=== PATIENT | female | born 1930 | race Caucasian/White ===

== ENCOUNTER 2016-04-08 20:42 | Outpatient (CLI) | payer MEDICARE, OTHER ==
[2016-04-08 21:07] LABS: #Basophils 0.1 thou/uL (0.0-0.2); #Eosinphils 0.2 thou/uL (0.0-0.7); #Lymphocytes 1.5 thou/uL (1.20-3.40); #Monocytes 0.9 thou/uL (0.11-0.59); #Neutrophils 4.7 thou/uL (1.40-6.50); %Basophils 0.7 % (0.0-1.0); %Eosinophils 2.2 % (0.0-10.0); %Lymphocytes 20.4 % (21.0-51.0); %Monocytes 12.5 % (0.0-10.0); Hematocrit 32.6 % (36.0-47.0); Red Blood Cell (RBC) Count 3.25 mill/uL (4.20-5.40); White Blood Cell (WBC) Count 7.3 thou/uL (4.8-10.8)
[2016-04-08 21:16] LABS: Prothrombin Time 14.2 SEC (12.0-14.7)
[2016-04-08 21:58] LABS: Anion Gap 12 mmol/L (10-20); BUN (Urea Nitrogen) 22 mg/dL (9.8-20.1); Calc. Creatinine Clearance 0 mL/min (70-130); Calcium 8.4 mg/dL (7.8-10.44); Carbon Dioxide 26 mmol/L (23-31); Chloride 104 mmol/L (98-107); Estimated GFR-MDRD 80
== END 2016-04-08 20:43 | disposition home or self-care (01) ==
LOC: NAV LAB 20:42
PROVIDERS: ATTEND Family Medicine
DX: M79.81 Nontraumatic hematoma of soft tissue (principal); Z79.899 Other long term (current) drug therapy
CPT/HCPCS: 80048; 85025; 85610; 85730

== ENCOUNTER 2016-04-15 16:25 | Emergency (ER) | payer MEDICARE, OTHER ==
[2016-04-15] MEDS ORDERED: Lidocaine 1% w/Epinephrine 1:100K 20 ML VIAL ONE (17:07)
[2016-04-15] MEDS ORDERED: Bacitracin Zinc 1 Packet ONE (17:23)
--- NOTE | 2016-04-15 18:07 | PICIS ---
[facility] EMERGENCY RECORD ADMIN MERGE: Call In [facility] Apr 15, 2016 16:10. (16:38 BDON) Ambulance Sat Apr 15, 2016 16:23. (16:38 BDON) TRIAGE ([facility] Apr 15, 2016 16:35 BDON) TRIAGE NOTES: Fell from standing positing, went forward, laceration to left eyebrow. No other complaints. Right hip surgery a month ago. DNR on chart. ([facility] Apr 15, 2016 16:35 BDON) PATIENT: NAME: Emily Lebron, AGE: 86, GENDER: female, : kierra 1930, TIME OF GREET: Sat Apr 15, 2016 16:26, PREFERRED LANGUAGE: Sammarinese, ETHNICITY: Not or , ECODE BILLING MAP: [facility], SSN: [id number], Zip Code: [address], KG WEIGHT: 49.90, PHONE: , , , PERSON ID: [id number], PCP: Gurjit KHOURY C. HENRY. ([facility] Apr 15, 2016 16:35 BDON) COMPLAINT: FALL/LT EYE LAC. ([facility] Apr 15, 2016 16:35 BDON) ADMISSION: URGENCY: 3 Urgent, ADMISSION SOURCE: Residential Care Facility, TRANSPORT: AMBULANCE - [facility], BED: TRIAGE. ([facility] Apr 15, 2016 16:35 BDON) ASSESSMENT: Assessment: Fell forward from a standing position, laceration left eye brow, bleeding controlled. (16:48 BDON) LMP: LMP: Menopause. (16:48 BDON) TREATMENTS IN PROGRESS: Treatments given Prehospital: dressing to forehead. (16:48 BDON) PROVIDERS: TRIAGE NURSE: Shaylee Mendez RN. ([facility] Apr 15, 2016 16:35 BDON) VITAL SIGNS: BP 163/73, Pulse 84, Resp 17, Temp 98.4, (Oral), Pain 3, O2 Sat 97, Time 04/15/2016 16:31. (16:31 BDON) KNOWN ALLERGIES No Known Drug Allergies (Unconfirmed) CURRENT MEDICATIONS Tylenol: TABLET : Strength - 325 mg : ORAL Patient Dose: 2 tab(s) every 6 hours PRN. (16:50 BDON) traMADol: TABLET : Strength - 50 mg : ORAL Patient Dose: every 4 to 6 hours.as needed. (16:51 BDON) lisinopril: TABLET : Strength - 10 mg : ORAL Patient Dose: once a day (in the morning). (16:51 BDON) Plavix: TABLET : Strength - 75 mg : ORAL Patient Dose: once a day. (16:51 BDON) Exelon: PATCH, TRANSDERMAL 24 HOURS : Strength - 4.6 mg/24 hour : TRANSDERMAL Patient Dose: Unknown. (16:53 BDON) citalopram: &a-1R&a+25V*p+0X*v1038W*c202B*c15G*c2P*p-0X&a-25V&a+1R Name: Emily Lebron : 1930 F86 MedRec: [id number] AcctNum: [id number] Prepared: Sat Apr 15, 2016 19:24 by Interface Page 1 of 6 pMD [facility] EMERGENCY RECORD TABLET : Strength - 20 mg : ORAL Patient Dose: once a day. (16:53 BDON) potassium chloride: CAPSULE, EXTENDED RELEASE : Strength - 10 mEq : ORAL Patient Dose: Unknown. (16:54 BDON) SEROquel: TABLET : Strength - 50 mg : ORAL Patient Dose: once a day. (16:54 BDON) Nuedexta: CAPSULE : Strength - 20 mg-10 mg : ORAL Patient Dose: 2 times a day. (16:55 BDON) melatonin: CAPSULE : Strength - 10 mg : ORAL Patient Dose: once a day (at bedtime). (16:55 BDON) VITAL SIGNS VITAL SIGNS: BP: 163/73, Pulse: 84, Resp: 17, Temp: 98.4 (Oral), Pain: 3, O2 sat: 97, Time: 04/15/2016 16:31. (16:31 BDON) BP: 166/86, Pulse: 89, Resp: 18, O2 sat: 96 on Room Air, Time: 04/15/2016 17:00. (17:00 EPIE) BP: 182/88, Pulse: 91, O2 sat: 98, Time: 04/15/2016 17:30. (17:30 BDON) BP: 159/81, Pulse: 94, Pain: 0, Time: 04/15/2016 18:38. (18:38 BDON) BP: 150/90, Pulse: 91, Resp: 16, Pain: 0, O2 sat: 98 on RA, Time: 04/15/2016 18:50. (18:50 LHAL) NURSING ASSESSMENT: HEAD-TO-TOE (16:56 BDON) CONSTITUTIONAL: Patient arrives, via [facility], History obtained from, [facility], Patient appears comfortable, Patient cooperative, Patient alert, Patient is, confused, Skin warm, Skin dry, Skin normal in color. SKIN: Skin assessment findings include skin warm, Skin dry, Skin normal in color, Inspection findings include laceration, to left eye brow...temporal area, bleeding controlled. NEURO: Able to close eyes, Face symmetrical. RESPIRATORY/CHEST: Respiratory assessment findings include respiratory effort easy, Respirations regular. RIGHT LOWER EXTREMITY: Notes: right hip surgery a month ago, no complaint of pain. SAFETY: Cart/Stretcher in lowest position, Family at bedside, Hospital ID band on, Patient in view of the nursing station. NURSING PROCEDURE: COMMUNICATIONS COMMUNICATIONS: prison, contacted at [phone], Name of contact Jolene GUPTA @ [facility], Contacted to call report for transfer back to facility, Awaiting EMS. (17:46 EPIE) prison, Spoke with [facility] staff as to ETA, it is unknown at this time. (18:33 BDON) NURSING PROCEDURE: DISCHARGE NOTE DISCHARGE: Patient discharged to jail, [facility], &a-1R&a+25V*p+0X*j0967I*c202B*c15G*c2P*p-0X&a-25V&a+1R Name: Emily Lebron Randy : 1930 F86 MedRec: [id number] AcctNum: [id number] Prepared: Sat Apr 15, 2016 19:24 by Interface Page 2 of 6 pMD [facility] EMERGENCY RECORD transported via non-urgent ambulance, Summary of Care printed/ provided, Patient requested and was provided an electronic copy of Discharge Instructions, Transition record given to patient, Discharge instructions given to daughter in law, Simple or moderate discharge teaching performed, Notes: Paper work will be sent with EMS, report called to [facility] by Iliana PEDRAZA Waiting on EMS. (17:56 BDON) Patient discharged to jail, [facility], Copy of chart sent to jail with patient, on a stretcher, transported via non-urgent ambulance, accompanied by emergency medical services personnel, Summary of Care printed/ provided, Patient requested and was provided an electronic copy of Discharge Instructions, Transition record given to patient, Discharge instructions given to patient, Discharge instructions given to FAMILY /EMS AND NH, Simple or moderate discharge teaching performed, by Britney SEGAL RN, Medication reconciliation form given, and reviewed with EMS/FAMILY, Above person(s) verbalized understanding of discharge instructions and follow-up care, Notes: DC HOME TO [place] WITHOUT INCIDENT, SKIN PINK W/D, NORMAL EVEN RESP, AWAKE, ALERT, CONFUSED, NORMAL MENTATION FOR PT, STABLE. (19:11 LHAL) BELONGINGS: Belongings and valuables with patient upon arrival to the Emergency Department include:. (19:11 LHAL) NURSING PROCEDURE: NURSE NOTES NURSES NOTES: Notes: Attempted to call [facility]. No answer. Will attempt again. (17:30 EPIE) Notes: Family at bedside, waiting on EMS. (18:24 BDON) Notes: received report on pt from Shaylee Mendez RN. Pt resting quietly, family at bs, pt awake, alert, confused, PERRL, bandaid to left temporal area with bruising, no swelling. Waiting on EMS to transport pt back to [place]>. (18:50 LHAL) Notes: [facility] HERE, REPORT GIVEN. (19:11 LHAL) VITAL SIGNS: BP: 150, / 90, Pulse: 91, Resp: 16, Pain: 0, O2 sat: 98, on: RA. (18:50 LHAL) NURSING PROCEDURE: WOUND CARE PATIENT IDENTIFIER: Patient actively involved in identification process. (17:23 BDON) TIMEOUT: Prior to procedure, correct patient verified by, Correct procedure verified, Correct site verified, Correct equipment utilized, Timeout not performed due to emergent nature of procedure. (17:23 BDON) WOUND CARE: Wound care indicated for preparing wound for repair, Wound site: left eye brown, Cause of wound: fall, Local infiltration with, 1% lidocaine with epinephrine, Wound irrigated with normal saline, by Dr. Eli, Wound cleansed with Betadine, Wound repaired with sutures, using 1 pack of suture. (17:23 BDON) FOLLOW-UP: After procedure, simple dressing applied, Notes: bandaide and bact ointment to site Blood cleaned out of hair. (17:39 BDON) &a-1R&a+25V*p+0X*j4796X*c202B*c15G*c2P*p-0X&a-25V&a+1R Name: Emily Lebron : 1930 F86 MedRec: [id number] AcctNum: [id number] Prepared: Sat Apr 15, 2016 19:24 by Interface Page 3 of 6 pMD [facility] EMERGENCY RECORD SAFETY: Side rails up, Cart/Stretcher in lowest position, Family at bedside, Hospital ID band on, Patient in view of the nursing station. (17:23 BDON) ORDER DETAILS Order Name: chart element #1, Status: Active, Time: 17:23 04/15/2016, User: System, - Ordered for: MD Eli Sam, - Entered by: KEILA Mendez Bettye - Kimani Apr 15, 2016 17:23, - Quantity: 1, Order Name: chart element #4, Status: Active, Time: 17:23 04/15/2016, User: System, - Ordered for: MD Eli Sam, - Entered by: EKILA Mendez Bettye - Kimani Apr 15, 2016 17:23, - Quantity: 1, Order Name: CT Brain WO Con, Status: Active, Time: 16:36 04/15/2016, User: BDON, - Ordered for: MD Eli Sam, - Entered by: KEILA Mendez Bettye - Kimani Apr 15, 2016 16:36, - Quantity: 1. HPI FALL (17:00 SROB) CHIEF COMPLAINT: Patient presents for evaluation of fall, from standing, from height less than 3 feet. HISTORIAN: History provided by patient's caregiver, The patient is a jail patient status post intracranialhemorrhage and righthip surgery. She has dementia nd does not walk well and apparently tried to stand and fell today hitting her head and lacerating the right forehead. LOCATION: Symptoms are localized, most severe to right forehead. TIME COURSE: Sudden onset of symptoms, minutes prior to arrival, Symptoms have resolved, She denies symptoms. ASSOCIATED WITH: Denies any other complaints. EXACERBATED BY: Patient's condition exacerbated by nothing. RELIEVED BY: Patient's condition relieved by nothing. RISK FACTORS: Risk factors for intracranial bleed, include age very old. PAST MEDICAL HISTORY (16:48 BDON) MEDICAL HISTORY: Hemochromatosis, altered mental status, delusional disorders, chronic obstructive pulmonary disease, hyperlipidemia, aphasia, cognitive communication deficit, dysphagia, age related osteoporosis, osteoarthritis, pseudobulbar, nontraumatic intracerebral hemorrhage, fx neck of femur, fx carpal bone, hypertension, muscle weakness, intracerebral hemorrhage in hemisphere, abnormalities of gait and mobility. FEMALE SURGICAL HISTORY: cataract, liver biopsy, bunionectomy, BUNIONECTOMY, Surgical history of orthopedic &a-1R&a+25V*p+0X*x1347B*c202B*c15G*c2P*p-0X&a-25V&a+1R Name: Emily Lebron : 1930 F86 MedRec: [id number] AcctNum: [id number] Prepared: Sat Apr 15, 2016 19:24 by Interface Page 4 of 6 pMD [facility] EMERGENCY RECORD surgery, BACK SURGERY - LAMINECTOMY, Surgical history of spinal surgery, lumbar, Notes: LAMINECTOMY X3. PSYCHIATRIC HISTORY: altered mental status, delusional disorders. SOCIAL HISTORY: Patient denies alcohol use, Patient denies drug use, Patient is a former tobacco user, Tobacco history notes: QUIT OCTOBER 2015. Social History includes Former cigarette smoker, former heavy alcohol use. No tobacco or alcohol for 3 months., Patient denies alcohol use, Patient denies drug use, Patient is a former tobacco user, Tobacco history notes: QUIT OCTOBER 2015. EVENTS TRANSFER: Triage to Emergency Triage. (Sat Apr 15, 2016 16:35 BDON) Emergency Triage to Emergency Room -02. (16:36 BDON) Removed from Emergency Emergency Room -02. (19:14 LHAL) RADIOLOGYINTERPRETATION (17:29 SROB) HEAD: No acute findings. Hypodensity in right fronta llobe secondary to post traumatic changes of prior bleed. LACERATION-SINGLE REPAIR (17:36 SROB) TIMEOUT: Side and/or site verified, Patient identification confirmed. LACERATION REPAIR: Side and/or site verified, Patient identification confirmed, Sterile procedures observed, Verbal consent obtained, Local infiltration with, 1% LIDOCAINE with epinephrine, 5mL, Simple repair of laceration, Skin layer closed, using 5.0, prolene suture, 5 sutures, interrupted, After procedure, wound well approximated, Tetanus status up to date. PROBLEM LIST No recorded problems DIAGNOSIS (17:38 SROB) FINAL: PRIMARY: laceration right forehead, ADDITIONAL: closed head injury. DISPOSITION PATIENT: Disposition Type: Discharge, Disposition: Residential, Disposition Transport: Ambulance, Condition: Good. (17:38 SROB) Patient left the department. (19:14 LHAL) INSTRUCTION (17:39 SROB) DISCHARGE: CLOSED HEAD INJURY NO WAKEUP ADULT, FACIAL LACERATION SUTURE TAPE. FOLLOWUP: Gurjit KHOURY, Jelani VARNER, [facility], [address] [place] [id number], [phone], Follow up with Primary Care Physician in 5 days. SPECIAL: Have sutures removed in 5-7 days. &a-1R&a+25V*p+0X*t2733Z*c202B*c15G*c2P*p-0X&a-25V&a+1R Name: Emily Lebron : 1930 F86 MedRec: [id number] AcctNum: [id number] Prepared: Sat Apr 15, 2016 19:24 by Interface Page 5 of 6 pMD [facility] EMERGENCY RECORD PRESCRIPTION No recorded prescriptions IMAGING DNR - ADVANCE DIRECTIVE: Image captured from scanner. (16:40 BDON) [facility] RECORDS: Image captured from scanner. (18:01 BDON) Page 2 added. Image captured from scanner. (18:01 BDON) Page 3 added. Image captured from scanner. (18:02 BDON) Page 4 added. Image captured from scanner. (18:02 BDON) Page 5 added. Image captured from scanner. (18:02 BDON) Page 6 added. Image captured from scanner. (18:02 BDON) *SUPPLY CHARGE SHEET: Image captured from scanner. (18:03 BDON) *DISCHARGE INSTRUCTIONS RECEIPT: Image captured from scanner. (19:13 LHAL) ADMIN DIGITAL SIGNATURE: MD Eli Sam. (17:38 SROB) MD Eli Sam. (17:39 SROB) KEILA Segal Linda. (19:14 LHSC) Patricio: JOVANI=KEILA Mendez, Shaylee PENN=KEILA Juarez, Iliana LHAL=KEILA Segal Linda SROB=MD Sreedhar, Jhon &a-1R&a+25V*p+0X*n6487I*c202B*c15G*c2P*p-0X&a-25V&a+1R Name: Emily Lebron : 1930 F86 MedRec: [id number] AcctNum: [id number] Prepared: Kimani Apr 15, 2016 19:24 by Interface Page 6 of 6 pMD MTDD
--- NOTE | 2016-04-15 18:52 | CT ---
EXAM: NONCONTRAST HEAD CT 04/15/16 HISTORY: Patient fell at custodial and hit forehead. Laceration to the left eyebrow. COMPARISON: None. TECHNIQUE: Noncontrast head CT is performed from skull base to skull vertex. FINDINGS: There is an old left lateral orbital wall fracture. The visualized globes are intact. Retrobulbar fa t is preserved. Symmetric attenuation of the visualized optic nerve and ocular rectus muscles. Calvarium is intact. Adequate aeration of the sinuses and mastoid air cells. Cavernous carotid ather osclerosis is noted. No parenchymal hemorrhage. No extra-axial hematoma. No midline shift. Basilar cisterns are patent. Malacic change involving the right frontal lobe due to remote insult. Remainder of the cerebrum demo nstrates preservation of the arrington-white matter differentiation. Ventricles are prominent due to atro phy. Chronic small vessel ischemic change of the white matter are noted. Remote lacunar infarcts in the left and right ordoñez radiata are noted. Hypodensity noted in the inferior medial right frontal lobe may represent sequela of remote posttrau matic change. IMPRESSION: 1. No intracranial posttraumatic sequela. 2. Age appropriate atrophy. 3. Chronic small vessel ischemic change of the white matter. 4. Malacic change in the right frontal lobe due to remote insult. 5. Old left lateral orbital wall fracture. POS: PPP
--- NOTE | 2016-04-15 19:26 | ERRECORD ---
[facility] EMERGENCY RECORD ADMIN (16:38 BDON) MERGE: Call In Sat Apr 15, 2016 16:10. Ambulance Sat Apr 15, 2016 16:23. HPI FALL (17:00 SROB) CHIEF COMPLAINT: Patient presents for evaluation of fall, from standing, from height less than 3 feet. HISTORIAN: History provided by patient's caregiver, The patient is a custodial patient status post intracranialhemorrhage and righthip surgery. She has dementia nd does not walk well and apparently tried to stand and fell today hitting her head and lacerating the right forehead. LOCATION: Symptoms are localized, most severe to right forehead. TIME COURSE: Sudden onset of symptoms, minutes prior to arrival, Symptoms have resolved, She denies symptoms. ASSOCIATED WITH: Denies any other complaints. EXACERBATED BY: Patient's condition exacerbated by nothing. RELIEVED BY: Patient's condition relieved by nothing. RISK FACTORS: Risk factors for intracranial bleed, include age very old. PAST MEDICAL HISTORY (16:48 BDON) MEDICAL HISTORY: Hemochromatosis, altered mental status, delusional disorders, chronic obstructive pulmonary disease, hyperlipidemia, aphasia, cognitive communication deficit, dysphagia, age related osteoporosis, osteoarthritis, pseudobulbar, nontraumatic intracerebral hemorrhage, fx neck of femur, fx carpal bone, hypertension, muscle weakness, intracerebral hemorrhage in hemisphere, abnormalities of gait and mobility. FEMALE SURGICAL HISTORY: cataract, liver biopsy, bunionectomy, BUNIONECTOMY, Surgical history of orthopedic surgery, BACK SURGERY - LAMINECTOMY, Surgical history of spinal surgery, lumbar, Notes: LAMINECTOMY X3. PSYCHIATRIC HISTORY: altered mental status, delusional disorders. SOCIAL HISTORY: Patient denies alcohol use, Patient denies drug use, Patient is a former tobacco user, Tobacco history notes: QUIT OCTOBER 2015. Social History includes Former cigarette smoker, former heavy alcohol use. No tobacco or alcohol for 3 months., Patient denies alcohol use, Patient denies drug use, Patient is a former tobacco user, Tobacco history notes: QUIT OCTOBER 2015. KNOWN ALLERGIES No Known Drug Allergies (Unconfirmed) CURRENT MEDICATIONS Tylenol: TABLET : Strength - 325 mg : ORAL Patient Dose: 2 tab(s) every 6 hours PRN. (16:50 BDON) &a-1R&a+25V*p+0X*x4383V*c202B*c15G*c2P*p-0X&a-25V&a+1R Name: Emily Lebron : 1930 F86 MedRec: [id number] AcctNum: [id number] Prepared: Sat Apr 15, 2016 19:17 by Interface Page 1 of 3 pMD [facility] EMERGENCY RECORD traMADol: TABLET : Strength - 50 mg : ORAL Patient Dose: every 4 to 6 hours.as needed. (16:51 BDON) lisinopril: TABLET : Strength - 10 mg : ORAL Patient Dose: once a day (in the morning). (16:51 BDON) Plavix: TABLET : Strength - 75 mg : ORAL Patient Dose: once a day. (16:51 BDON) Exelon: PATCH, TRANSDERMAL 24 HOURS : Strength - 4.6 mg/24 hour : TRANSDERMAL Patient Dose: Unknown. (16:53 BDON) citalopram: TABLET : Strength - 20 mg : ORAL Patient Dose: once a day. (16:53 BDON) potassium chloride: CAPSULE, EXTENDED RELEASE : Strength - 10 mEq : ORAL Patient Dose: Unknown. (16:54 BDON) SEROquel: TABLET : Strength - 50 mg : ORAL Patient Dose: once a day. (16:54 BDON) Nuedexta: CAPSULE : Strength - 20 mg-10 mg : ORAL Patient Dose: 2 times a day. (16:55 BDON) melatonin: CAPSULE : Strength - 10 mg : ORAL Patient Dose: once a day (at bedtime). (16:55 BDON) VITAL SIGNS VITAL SIGNS: BP: 163/73, Pulse: 84, Resp: 17, Temp: 98.4 (Oral), Pain: 3, O2 sat: 97, Time: 04/15/2016 16:31. (16:31 BDON) BP: 166/86, Pulse: 89, Resp: 18, O2 sat: 96 on Room Air, Time: 04/15/2016 17:00. (17:00 EPIE) BP: 182/88, Pulse: 91, O2 sat: 98, Time: 04/15/2016 17:30. (17:30 BDON) BP: 159/81, Pulse: 94, Pain: 0, Time: 04/15/2016 18:38. (18:38 BDON) BP: 150/90, Pulse: 91, Resp: 16, Pain: 0, O2 sat: 98 on RA, Time: 04/15/2016 18:50. (18:50 LHAL) RADIOLOGYINTERPRETATION (17:29 SROB) HEAD: No acute findings. Hypodensity in right fronta llobe secondary to post traumatic changes of prior bleed. PROBLEM LIST No recorded problems DIAGNOSIS (17:38 SROB) FINAL: PRIMARY: laceration right forehead, ADDITIONAL: closed head injury. PRESCRIPTION &a-1R&a+25V*p+0X*g8901J*c202B*c15G*c2P*p-0X&a-25V&a+1R Name: Emily Lebron : 1930 F86 MedRec: [id number] AcctNum: [id number] Prepared: Sat Apr 15, 2016 19:17 by Interface Page 2 of 3 pMD [facility] EMERGENCY RECORD No recorded prescriptions DISPOSITION PATIENT: Disposition Type: Discharge, Disposition: Fdc, Disposition Transport: Ambulance, Condition: Good. (17:38 SROB) Patient left the department. (19:14 LHAL) Patricio: BDON=KEILA Mendez, Shaylee EPIKris=KEILA Juarez, Iliana LHAL=KEILA Segal, Justina SROB=MD Sreedhar, [facility] &a-1R&a+25V*p+0X*z5340F*c202B*c15G*c2P*p-0X&a-25V&a+1R Name: Emily Lebron : 1930 F86 MedRec: [id number] AcctNum: [id number] Prepared: Sat Apr 15, 2016 19:17 by Interface Page 3 of 3 pMD MTDD
== END 2016-04-15 19:13 ==
LOC: NAV ERS 16:25
DX: S01.81XA Laceration without foreign body of other part of head, initial encounter (principal); M19.90 Unspecified osteoarthritis, unspecified site; Z87.891 Personal history of nicotine dependence; Z79.899 Other long term (current) drug therapy; W17.89XA Other fall from one level to another, initial encounter
CPT/HCPCS: 12013; 70450; J2001

== ENCOUNTER 2016-06-08 07:37 | Outpatient (CLI) | payer MEDICARE, OTHER ==
[2016-06-08 08:53] LABS: Prothrombin Time 12.9 SEC (12.0-14.7)
== END 2016-06-08 07:38 | disposition home or self-care (01) ==
LOC: NAV LABSP 07:37
PROVIDERS: ATTEND Family Medicine
DX: I61.5 Nontraumatic intracerebral hemorrhage, intraventricular (principal)
CPT/HCPCS: 36415; 85610

== ENCOUNTER 2016-11-24 09:43 | Outpatient (CLI) | payer MEDICARE, OTHER ==
[2016-11-24 10:35] LABS: Bilirubin Negative (Negative); Blood, Urine Trace (Negative); Clarity Clear (Clear); Glucose, Urine (Dipstick) Negative (Negative); Leukocyte Trace (Negative); Nitrite Positive (Negative); Protein, Urine (Dipstick) Negative (Neg-Trace); Urobilinogen 0.2 mg/dL (0.2-1.0); pH, Urine 5.5 (5.0-9.0)
[2016-11-24 11:17] LABS: Specific Gravity, Urine 1.025 (1.002-1.036)
[2016-11-24 11:19] LABS: RBC/HPF 0-3 HPF (0-3); Squamous Epithelial 0-3 HPF (0-3); WBC/HPF None Seen HPF (0-3)
[2016-11-24 11:20] LABS: Bacteria/HPF 3+ HPF (None Seen); Other Microscopic Description NO
== END 2016-11-24 09:44 | disposition home or self-care (01) ==
LOC: NAV LABSP 09:43
PROVIDERS: ATTEND Family Medicine
DX: R41.82 Altered mental status, unspecified (principal)
CPT/HCPCS: 81001